=== PATIENT | female | born 1950 | race Caucasian/White ===

== ENCOUNTER 2018-05-12 10:20 | Emergency (ER) | payer MEDICARE, MEDICAID ==
[~2018-05-12] VITALS: Ht 162.6 cm; Wt 54.5 kg
[2018-05-12 11:13] LABS: BASOPHILS # (AUTO) 0.1 X10'3 (0-0.2); BASOPHILS % (AUTO) 0.4 % (0-1); EOSINOPHILS # (AUTO) 0.1 X10'3 (0-0.9); EOSINOPHILS % (AUTO) 0.4 % (0-6); HEMATOCRIT 41.5 % (35.0-45.0); HEMOGLOBIN 13.9 g/dl (12.0-16.0); LYMPHOCYTES # (AUTO) 1.8 X10'3 (1.1-4.8); LYMPHOCYTES % (AUTO) 10.5 % (21-51); MEAN CORPUSCULAR HEMOGLOBIN 27.3 PG (27.0-31.0); MEAN CORPUSCULAR HGB CONC 33.6 % (33.0-36.5); MEAN CORPUSCULAR VOLUME 81.1 FL (78-98); MEAN PLATELET VOLUME 7.6 FL (7.4-10.4); MONOCYTES # (AUTO) 0.8 X10'3 (0-0.9); MONOCYTES % (AUTO) 4.5 % (2-12); NEUTROPHILS # (AUTO) 14.6 X10'3 (1.8-7.7); NEUTROPHILS % (AUTO) 84.2 % (42-75); PLATELET COUNT 391 X10'3 (140-440); RED BLOOD COUNT 5.11 X10'6 (4.20-5.60); RED CELL DISTRIBUTION WIDTH 16.2 % (11.5-14.5); WHITE BLOOD COUNT 17.4 X10'3 (4.5-11.0)
[2018-05-12 11:24] LABS: PARTIAL THROMBOPLASTIN TIME 26 SECONDS (22-32); PROTHROMBIN TIME 10.1 SECONDS (9.0-12.0)
[2018-05-12 11:29] LABS: ALANINE AMINOTRANSFERASE 101 U/L (12-78); ALBUMIN 3.8 G/DL (3.4-5.0); ALKALINE PHOSPHATASE 78 IU/L (46-116); ANION GAP 15 (8-16); ASPARTATE AMINO TRANSFERASE 376 U/L (10-37); BILIRUBIN,TOTAL 0.6 MG/DL (0.1-1.0); BLOOD UREA NITROGEN 27 MG/DL (7-18); BUN/CREATININE RATIO 25.5 (6.6-38.0); CALCIUM 9.2 MG/DL (8.5-10.1); CHLORIDE 100 MMOL/L (99-107); CREATININE 1.06 MG/DL (0.40-0.90); GLUCOSE 115 MG/DL (70-104); POTASSIUM 3.4 MMOL/L (3.5-5.1); SODIUM 135 MMOL/L (135-145); TOTAL PROTEIN 7.8 G/DL (6.4-8.2); eGFR 52 ML/MIN
[2018-05-12 12:21] VITALS: BP 176/120
[2018-05-12] MEDS ORDERED: famotidine/PF 10 mg/ml inj IV ONE (12:30)
[2018-05-12] MEDS ORDERED: ondansetron/PF 4mg/2ml inj IV ONE (12:30)
[2018-05-12] MEDS ORDERED: LISI-600 PO (12:59)
== END 2018-05-12 13:24 | disposition home or self-care (01) ==
LOC: ER 10:20
DX: R07.89 Other chest pain (principal); I10 Essential (primary) hypertension; K21.9 Gastro-esophageal reflux disease without esophagitis; F12.90 Cannabis use, unspecified, uncomplicated; F17.200 Nicotine dependence, unspecified, uncomplicated; Z90.710 Acquired absence of both cervix and uterus
CPT/HCPCS: 36415; 71045; 80053; 84484; 85025; 85610; 85730; 93005; 96374; 96375; 99285; J2405; J3490

== ENCOUNTER 2018-05-16 08:23 | Emergency (ER) | payer MEDICARE, MEDICAID ==
[~2018-05-16] VITALS: Ht 152.4 cm; Wt 59.0 kg
[~2018-05-16 08:23] MED LIST: LISI-600 PO
[2018-05-16 08:39] VITALS: BP 111/65
[2018-05-16] MEDS ORDERED: dexamethasone sod phosphate 10mg/ml inj IM STA (08:45)
[2018-05-16] MEDS ORDERED: ketorolac trometh inj. 60 MG/2 ML VIAL IM ONE (08:45)
== END 2018-05-16 09:28 | disposition home or self-care (01) ==
LOC: ER 08:23
DX: M50.30 Other cervical disc degeneration, unspecified cervical region (principal); M25.512 Pain in left shoulder; I10 Essential (primary) hypertension; K21.9 Gastro-esophageal reflux disease without esophagitis; F12.90 Cannabis use, unspecified, uncomplicated; Z90.710 Acquired absence of both cervix and uterus; Z59.0 Homelessness; Z79.899 Other long term (current) drug therapy
CPT/HCPCS: 96372; 99284; J1100; J1885

== ENCOUNTER 2018-07-10 08:59 | Day surgery (SDC) | payer MEDICARE, MEDICAID ==
[2018-07-10] MEDS ORDERED: LIDOcaine/PRILOcaine 5gm cream TP ONE (09:28)
[2018-07-10] MEDS ORDERED: NO HOME MEDS (10:19)
[2018-07-10 10:28] LABS: HEMOGLOBIN 10.5 g/dl (12.0-16.0); MEAN CORPUSCULAR HEMOGLOBIN 28.2 PG (27.0-31.0); MEAN CORPUSCULAR HGB CONC 32.7 % (33.0-36.5); MEAN CORPUSCULAR VOLUME 86.3 FL (78-98); MEAN PLATELET VOLUME 6.9 FL (7.4-10.4); PLATELET COUNT 424 X10'3 (140-440); RED BLOOD COUNT 3.71 X10'6 (4.20-5.60); RED CELL DISTRIBUTION WIDTH 22.3 % (11.5-14.5); WHITE BLOOD COUNT 7.7 X10'3 (4.5-11.0)
[2018-07-10 10:42] LABS: HEMOGLOBIN A1C 4.9 % (4.5-6.2)
[2018-07-10 10:44] LABS: ALANINE AMINOTRANSFERASE 13 U/L (12-78); ALBUMIN 3.2 G/DL (3.4-5.0); ALKALINE PHOSPHATASE 62 IU/L (46-116); ANION GAP 16 (8-16); ASPARTATE AMINO TRANSFERASE 13 U/L (10-37); BILIRUBIN,TOTAL 0.3 MG/DL (0.1-1.0); BLOOD UREA NITROGEN 13 MG/DL (7-18); BUN/CREATININE RATIO 11.9 (6.6-38.0); CALCIUM 8.1 MG/DL (8.5-10.1); CHLORIDE 108 MMOL/L (99-107); CREATININE 1.09 MG/DL (0.40-0.90); GLUCOSE 91 MG/DL (70-104); POTASSIUM 3.8 MMOL/L (3.5-5.1); SODIUM 142 MMOL/L (135-145); TOTAL CARBON DIOXIDE 18.3 MMOL/L (24-32); TOTAL PROTEIN 6.4 G/DL (6.4-8.2); eGFR 50 ML/MIN
[2018-07-10 10:53] LABS: ANISOCYTOSIS 3+; PLATELET ESTIMATE NORMAL; TOTAL CELLS COUNTED 100
[2018-07-10 10:55] LABS: BURR CELLS FEW; HYPOCHROMASIA 1+; SCHISTOCYTES FEW
== END 2018-07-10 10:23 | disposition home or self-care (01) ==
LOC: WOUND CARE 08:59
PROVIDERS: ATTEND Surgery
DX: E11.622 Type 2 diabetes mellitus with other skin ulcer (principal); L98.492 Non-pressure chronic ulcer of skin of other sites with fat layer exposed; I10 Essential (primary) hypertension; K21.9 Gastro-esophageal reflux disease without esophagitis; F12.90 Cannabis use, unspecified, uncomplicated; Z90.710 Acquired absence of both cervix and uterus; Z79.899 Other long term (current) drug therapy; Z87.891 Personal history of nicotine dependence
CPT/HCPCS: 17250; 36415; 80053; 83036; 84134; 85025; 85651; A6021; A6212; 97597

== ENCOUNTER 2018-07-17 08:45 | Day surgery (SDC) | payer MEDICARE, MEDICAID ==
[~2018-07-17 08:45] MED LIST changes: -LISI-600 PO; +NO HOME MEDS
[2018-07-17] MEDS ORDERED: LIDOcaine/PRILOcaine 5gm cream TP ONE (09:50)
== END 2018-07-17 11:01 | disposition home or self-care (01) ==
LOC: WOUND CARE 08:45
PROVIDERS: ATTEND Surgery
DX: E11.622 Type 2 diabetes mellitus with other skin ulcer (principal); L98.492 Non-pressure chronic ulcer of skin of other sites with fat layer exposed; I10 Essential (primary) hypertension; K21.9 Gastro-esophageal reflux disease without esophagitis; F12.90 Cannabis use, unspecified, uncomplicated; Z90.710 Acquired absence of both cervix and uterus; Z79.899 Other long term (current) drug therapy; Z87.891 Personal history of nicotine dependence
CPT/HCPCS: 17250; A6021; A6206; A6209

== ENCOUNTER 2018-07-22 09:10 | Day surgery (SDC) | payer MEDICARE, MEDICAID ==
[2018-07-22] MEDS ORDERED: LIDOcaine/PRILOcaine 5gm cream TP ONE (10:40)
== END 2018-07-22 11:25 | disposition home or self-care (01) ==
LOC: WOUND CARE 09:10
PROVIDERS: ATTEND Surgery
DX: E11.622 Type 2 diabetes mellitus with other skin ulcer (principal); L98.492 Non-pressure chronic ulcer of skin of other sites with fat layer exposed; I10 Essential (primary) hypertension; K21.9 Gastro-esophageal reflux disease without esophagitis; F12.90 Cannabis use, unspecified, uncomplicated; Z90.710 Acquired absence of both cervix and uterus; Z79.899 Other long term (current) drug therapy; Z87.891 Personal history of nicotine dependence
CPT/HCPCS: 17250; A6021; A6206; A6212

== ENCOUNTER 2018-07-31 09:05 | Day surgery (SDC) | payer MEDICARE, MEDICAID ==
[2018-07-31] MEDS ORDERED: LIDOcaine/PRILOcaine 5gm cream TP ONE (09:43)
== END 2018-07-31 10:16 | disposition home or self-care (01) ==
LOC: WOUND CARE 09:05
PROVIDERS: ATTEND Surgery
DX: E11.622 Type 2 diabetes mellitus with other skin ulcer (principal); L98.492 Non-pressure chronic ulcer of skin of other sites with fat layer exposed; I10 Essential (primary) hypertension; K21.9 Gastro-esophageal reflux disease without esophagitis; F12.90 Cannabis use, unspecified, uncomplicated; Z90.710 Acquired absence of both cervix and uterus; Z79.899 Other long term (current) drug therapy; Z87.891 Personal history of nicotine dependence
CPT/HCPCS: 17250; A6021; A6212

== ENCOUNTER 2018-08-07 08:58 | Outpatient (CLI) | payer MEDICARE, MEDICAID ==
[2018-08-07] MEDS ORDERED: mupirocin 2% ointment 22GM ONE (10:07)
== END 2018-08-07 10:14 | disposition home or self-care (01) ==
LOC: WOUND CARE 08:58 → EDSTATUS 09:30 → WOUND CARE 10:14
PROVIDERS: ATTEND Surgery
DX: E11.622 Type 2 diabetes mellitus with other skin ulcer (principal); L98.492 Non-pressure chronic ulcer of skin of other sites with fat layer exposed; I10 Essential (primary) hypertension; K21.9 Gastro-esophageal reflux disease without esophagitis; F12.90 Cannabis use, unspecified, uncomplicated; Z90.710 Acquired absence of both cervix and uterus; Z79.899 Other long term (current) drug therapy; Z87.891 Personal history of nicotine dependence
CPT/HCPCS: 99215

== ENCOUNTER 2018-12-07 10:42 | Emergency (ER) | payer MEDICARE, MEDICAID | END 2018-12-07 11:18 | disposition left against medical advice (07) | LOC: ER 10:42 | DX: M25.539 Pain in unspecified wrist (principal); Z53.21 Procedure and treatment not carried out due to patient leaving prior to being seen by health care provider ==

== ENCOUNTER 2018-12-12 08:45 | Outpatient (CLI) | payer MEDICARE, MEDICAID ==
--- NOTE | 2018-12-12 15:59 | NUR ---
Patient ambulated independently from [facility] and was admitted to outpatient wound care for return physician visit with Robert Lynn MD. Patient assessed and medications and medical history reviewed. No wound noted. Dr. Lynn at bedside accompanied by RN. Left wrist assessed no wound noted. Plan of care discussed with patient. X-ray ordered. Referral to ER if wrist is fractured. Phi wrap ordered and placed. Patient was discharged. Patient verbalized understanding of all discharge instructions and plan of care and ambulated independently out to [facility] in stable condition with no sign or symptom of distress at time of discharge. Addendum: 12/12/18 at 1606 by Glendy Funes RN Amended: Links added.
== END 2018-12-12 11:00 | disposition home or self-care (01) ==
LOC: WOUND CARE 08:45 → EDSTATUS 09:00 → WOUND CARE 11:00
PROVIDERS: ATTEND Surgery
DX: S62.102A Fracture of unspecified carpal bone, left wrist, initial encounter for closed fracture (principal); I10 Essential (primary) hypertension; K21.9 Gastro-esophageal reflux disease without esophagitis; E11.9 Type 2 diabetes mellitus without complications; F12.90 Cannabis use, unspecified, uncomplicated; Z90.710 Acquired absence of both cervix and uterus; Z79.899 Other long term (current) drug therapy; Z87.891 Personal history of nicotine dependence; X58.XXXA Exposure to other specified factors, initial encounter; Y93.89 Activity, other specified; Y92.89 Other specified places as the place of occurrence of the external cause; Y99.8 Other external cause status
CPT/HCPCS: 73100; G0463

== ENCOUNTER 2018-12-25 10:10 | Outpatient (CLI) | payer MEDICARE, MEDICAID | END 2018-12-25 11:01 | disposition home or self-care (01) | LOC: ORTHO 10:10 | PROVIDERS: ATTEND Nurse Practitioner Family | DX: M18.12 Unilateral primary osteoarthritis of first carpometacarpal joint, left hand (principal); E11.9 Type 2 diabetes mellitus without complications; F17.200 Nicotine dependence, unspecified, uncomplicated | CPT/HCPCS: 73110; 99213 ==

== ENCOUNTER 2019-10-04 22:00 | Emergency (ER) | payer MEDICAID, MEDICARE ==
[~2019-10-04] VITALS: Ht 162.6 cm; Wt 45.5 kg
--- NOTE | 2019-10-04 23:51 | NUR ---
LUIS GUZMAN AT BEDSIDE
[2019-10-05] MEDS ORDERED: ketorolac tromethamine 15mg/ml inj. IM ONE (01:00)
[2019-10-05] MEDS ORDERED: cloNIDine 0.1 mg tablet PO STA (01:02)
[2019-10-05] MEDS ORDERED: hydrALAZINE 25 MG tablet PO ONE (01:40)
[2019-10-05] MEDS ORDERED: ibuprofen tablet 400 MG TABLET PO ONE (02:25)
[2019-10-05 02:33] VITALS: BP 135/97
--- NOTE | 2019-10-05 10:04 | NUR ---
CALLED AND LEFT A MESSAGE FOR ELOISE SEQUEIRA WHO IS LISTED NEXT OF KIN. I LEFT A MESSAGE TO HAVE REBEKAH CALL US BACK. POSSIBLE MASS SEEN ON CHEST X-RAY. RECOMENDED BY RADIOLOGIST TO HAVE A FOLLOW UP CT OF CHEST TO VERIFY. PT. CAN HAVE THIS DONE BY PMD. IF PT. HAS NO PMD. SHE CAN RETURN TO ER.
--- NOTE | 2019-10-05 10:24 | NUR ---
LY CALLED BACK AND STATED SHE HAD NOT SEEN HER FOR 2 MONTHS, BUT SHE WAS GOING TO [place] AROUND AND FIND HER. AND HAVE HER CALL US.
--- NOTE | 2019-10-10 16:20 | NUR ---
REBEKAH CALLED BACK. I TOLD HER THAT THE RADIOLOGIST SAW A POSSIBLE MASS ON HER X-RAYS. AND RECOMENDED THAT SHE GET A CT SCAN OF HER CHEST. I TOLD HER SHE COULD WAIT UNTIL AFTER CLAU. I TOLD HER SHE COULD HAVE IT DONE BY HER PMD, OR THE ER IF SHE DID NOT HAVE A PMD. PT. STATED " I WILL SEE YOU SUNDAY"
[2019-10-12] MEDS ORDERED: NO HOME MEDS (11:07)
[2019-10-13] MEDS ORDERED: LEVO750T46 PO (18:07)
[2019-10-13] MEDS ORDERED: PANT40TA4 PO (18:07)
[2019-10-13] MEDS ORDERED: AMLO5TAB4 PO (18:07)
[2019-10-13] MEDS ORDERED: BUDE10.22 INH (18:07)
[2019-10-13] MEDS ORDERED: HYDR12.5 PO (18:07)
[2019-10-13] MEDS ORDERED: ALBU8.5H8 INH (18:07)
[2019-10-13] MEDS ORDERED: LISI10TA4 PO (18:07)
[2019-10-13] MEDS ORDERED: PRED10TA23 PO (18:10)
== END 2019-10-05 02:37 | disposition home or self-care (01) ==
LOC: ER 22:01
DX: R07.89 Other chest pain (principal); I10 Essential (primary) hypertension; K21.9 Gastro-esophageal reflux disease without esophagitis; F17.200 Nicotine dependence, unspecified, uncomplicated; Z59.0 Homelessness; Z90.710 Acquired absence of both cervix and uterus
CPT/HCPCS: 71045; 93005; 96372; 99284; J1885